=== PATIENT | female | born 1975 | race African-American/Black ===

== ENCOUNTER 2017-02-28 06:35 | Inpatient (IN) ==
[2017-02-26 11:24] LABS: MANUAL DIFF NEEDED? NO; URINE SOURCE VOIDED
[2017-02-26 11:35] LABS: BASO% 0.5 % (0.0-0.8); HEMATOCRIT 36.6 % (37.0-47.0); HEMOGLOBIN 11.2 g/dL (12.0-16.0); IMM GRAN# 0.02 X1000 (0.0-0.04); IMM GRAN% 0.2 % (0.0-0.5); LYMPH# 3.33 X1000 (1.2-3.4); LYMPH% 33.3 % (20.5-51.1); MCH 22.9 PG (27-31); MCHC 30.6 g/dL (33-37); MCV 74.7 FL (81-99); MONO# 0.45 X1000 (0.11-0.59); MONO% 4.5 % (1.7-9.3); MPV 12.7 FL (7.4-10.4); NEUT% 59.5 % (42.2-75.2); PLT 297 X1000 (130-400)
[2017-02-26 11:37] LABS: BILIRUBIN URINE NEGATIVE (NEGATIVE); BLOOD URINE 1+ (NEGATIVE); CLARITY CLEAR (CLEAR); COLOR YELLOW; LEUKOCYTES URINE 1+ (NEGATIVE); NITRITE URINE NEGATIVE (NEGATIVE); PROTEIN URINE 1+(30 mg/dL) mg/dL (NEGATIVE); URINE MICROSCOPIC NEEDED? YES; UROBILINOGEN URINE NORMAL
[2017-02-26 11:45] LABS: URINE EPITHELIAL CELLS <10 /HPF (<10); URINE RBC <10 /HPF (<10); URINE WBC <10 /HPF (<10)
--- NOTE | 2017-02-27 13:42 | HISTORY AND PHYSICAL ---
ADMITTING PHYSICIAN: Dr. Rich. ADMITTING DIAGNOSIS: Dysfunctional uterine bleeding with dysmenorrhea and menorrhagia. SUMMARY: Alexandrea Urban is a 41-year-old nulliparous patient who is having heavy painful periods. She has to wear a pad and tampon. Her periods may last 8-10 days. Her last period went on for almost 3 weeks. We did an ultrasound which shows normal ovaries and a small fibroid. After discussing options with the patient, she is being admitted for abdominal hysterectomy. PAST MEDICAL HISTORY: Patient has never been . This will be her 1st operation. She has a history of heart murmurs, diabetes and hypertension. She has had breast reduction. CURRENT MEDICATIONS: Include Xigduo, Coreg, Norvasc, [place], Flexeril and ramipril. PHYSICAL EXAMINATION: VITAL SIGNS: Weight is 228, blood pressure 154/96. CARDIOVASCULAR: Regular rate and rhythm without murmurs, rubs, or gallops. PULMONARY: Clear. BREASTS: No masses. ABDOMEN: Tender without rebound, rigidity, or guarding. Bowel sounds are present and normal. PELVIC: Examination shows normal external genitalia. The cervix is grossly free of lesions. Recent Pap smear was read as normal. The uterus is difficult to evaluate, does not appear enlarged. There is no adnexal masses. IMPRESSION: Dysfunctional uterine bleeding with dysmenorrhea and menorrhagia. PLAN: After discussing options with the patient, will proceed with abdominal hysterectomy. Risks of surgery including pain, bleeding, infection, bowel or bladder injury, and anesthesia complications been discussed. Reasonable expectations and recovery time have also been discussed. Alternatives to the surgery were discussed. cc: Nitesh Rich MD
[2017-02-28] MEDS ORDERED: LR 1,000 ML IV SCH ×3 (06:40→10:59)
[2017-02-28] MEDS ORDERED: KEFZOL 1 GM/D5W 1 GM/50 ML IVPB IV ONE (06:40)
[2017-02-28] MEDS ORDERED: CLINDAMYCIN 600 MG/NS 600 MG/50 ML IVPB IV ONE (06:51)
[2017-02-28] MEDS ORDERED: HUMULIN R (PARKWAY) SUBQ ONE (07:21)
[2017-02-28 08:00] LABS: HEMOGLOBIN A1C 9.9 % (4.8-6.0)
[2017-02-28] MEDS ORDERED: QUELICIN ONE ×2 (08:20→08:24)
[2017-02-28] MEDS ORDERED: DECADRON ONE (08:24)
[2017-02-28] MEDS ORDERED: TORADOL ONE (08:24)
[2017-02-28] MEDS ORDERED: DIPRIVAN 1% ONE (08:24)
[2017-02-28] MEDS ORDERED: ZOFRAN ONE (08:24)
[2017-02-28] MEDS ORDERED: ROBINUL ONE (08:24)
[2017-02-28] MEDS ORDERED: VERSED ONE (08:25)
[2017-02-28] MEDS ORDERED: FENTANYL ONE (08:25)
[2017-02-28] MEDS ORDERED: PEPCID IV ONE (08:45)
[2017-02-28] MEDS ORDERED: SODIUM CHLORIDE 0.9% 10 ML ONE (08:56)
--- NOTE | 2017-02-28 08:57 | EKG Report ---
Test Performed on : 02/28/2017 08:46:49 AM Test Reason : pre-op-now please Blood Pressure : / mmHG Vent. Rate : 084 BPM Atrial Rate : 084 BPM P-R Int : 134 ms QRS Dur : 086 ms QT Int : 394 ms P-R-T Axes : 065 056 -45 degrees QTc Int : 465 ms Normal sinus rhythm. Right atrial enlargement T wave abnormality, consider inferior ischemia Prolonged QT Abnormal ECG When compared with ECG of 22-FEB-2017 03:48, premature ventricular complexes. are no longer present T wave inversion now evident in Lateral leads Confirmed by Marcello Wilburn MD ([id number]) on 03/02/2017 8:18:22 AM
[2017-02-28] MEDS ORDERED: CLINDAMYCIN 900 MG/NS 900 MG/50 ML IVPB ONE (09:36)
[2017-02-28] MEDS ORDERED: NORCO-10 PO PRN ×2 (10:59→11:34)
[2017-02-28] MEDS ORDERED: LEVSIN-SL SL PRN ×2 (10:59→11:34)
[2017-02-28] MEDS ORDERED: PHENERGAN IM PRN (10:59)
[2017-02-28] MEDS ORDERED: ZOFRAN ODT PO PRN ×2 (10:59→11:35)
[2017-02-28] MEDS ORDERED: DEMEROL IM PRN ×2 (10:59→11:32)
[2017-02-28] MEDS ORDERED: DULCOLAX PR PRN ×2 (10:59→11:33)
[2017-02-28] MEDS ORDERED: MOTRIN PO PRN (10:59)
[2017-02-28] MEDS ORDERED: ZOFRAN IV PRN ×3 (10:59→12:58)
[2017-02-28] MEDS ORDERED: FLEET ENEMA PR PRN ×2 (10:59→11:35)
[2017-02-28] MEDS ORDERED: AMBIEN PO PRN ×2 (10:59→11:32)
[2017-02-28] MEDS ORDERED: NORCO-5 PO PRN ×2 (10:59→11:34)
[2017-02-28 11:00] LABS: URINE SOURCE CATH
[2017-02-28] MEDS ORDERED: HUMULIN R (PARKWAY) SUBQ SCH (11:00)
[2017-02-28 11:06] LABS: BILIRUBIN URINE NEGATIVE (NEGATIVE); BLOOD URINE NEGATIVE (NEGATIVE); CLARITY CLEAR (CLEAR); COLOR YELLOW; LEUKOCYTES URINE TRACE (NEGATIVE); NITRITE URINE NEGATIVE (NEGATIVE); PROTEIN URINE 1+(30 mg/dL) mg/dL (NEGATIVE); URINE MICROSCOPIC NEEDED? YES; UROBILINOGEN URINE 1+(1 mg/dL)
[2017-02-28] MEDS ORDERED: HUMULIN R (PARKWAY) SUBQ PRN ×2 (11:06→11:35)
[2017-02-28 11:20] LABS: URINE EPITHELIAL CELLS <10 /HPF (<10); URINE WBC <10 /HPF (<10)
--- NOTE | 2017-02-28 11:38 | OPERATIVE NOTE ---
PROCEDURE DATE: 02/28/2017 SURGEON: Dr. Nitesh Rich. CHORAL DIRECTOR: Dr. iNtesh Herrera. ANESTHESIA: General endotracheal. OPERATION PERFORMED: Transabdominal hysterectomy. PREOPERATIVE DIAGNOSIS: Dysfunctional uterine bleeding with dysmenorrhea and menorrhagia. POSTOPERATIVE DIAGNOSES: 1. Dysfunctional uterine bleeding with dysmenorrhea and menorrhagia. 2. Uterine leiomyomata. FINDINGS: Small uterine leiomyomata. DESCRIPTION OF PROCEDURE: The patient was taken back to the operating room and after general endotracheal anesthesia, placed in supine position. The vagina and abdomen prepped and draped in usual fashion. A catheter was placed in the urinary bladder. A Pfannenstiel incision was made. This incision was taken down to the fascia, and the fascia was excised transversely. The underlying rectus muscle was bluntly and sharply dissected free. The rectus muscle was in the midline. The peritoneum was entered. The O'Nikhil-O'Chan self-retaining retractors placed and bowel was packed out of the operative field. The fundus of the uterus was grasped with a Shahab clamp. The uterus was poorly mobile and could not be elevated out of the pelvis at anytime during the procedure. Using the LigaSure device, the round ligaments bilaterally were grasped, cauterized, and excised. Continuing with the LigaSure. The remainder of the broad ligament was grasped cauterized and excised with moderate difficulty due to the inability to elevate the uterus out of the pelvis. The bladder flap was created. The bladder was bluntly and sharply dissected off the lower uterine segment and cervix. Even with extreme difficulty, we were able to clamp, cauterize and excise the uterine vessels. At this time, we had no exposure in the lower pelvis. We, therefore, amputated the fundus of the uterus and grasped the cervical stump with the Shahab. We then used straight Rodriguez clamps to clamp, excise, and ligate the cardinal and uterosacral ligaments. We could not get enough mobility to lift the cervix into the operative field. We, therefore, did a supracervical hysterectomy by removing the uterus above the cervix. Several stitches were used for hemostasis. The pelvic cavity was irrigated with copious amounts of sterile water. Hemostasis again was noted. All packs and instruments were removed. Gelfoam was placed across the cervical stump. Initial sponge, instrument, and needle count reported as correct. The peritoneum was closed using a running chromic suture. Second sponge, instrument, and needle count reported as correct. The fascia closed using running Vicryl sutures x2. The adipose tissue was reapproximated using a subcuticular stitch and skin edges reapproximated using 4-0 Monocryl and a Kole needle. Blood loss approximately 50 mL. There were no complications. The patient was extubated and went to the recovery room in stable condition. cc: Nitesh Rich MD
[2017-02-28] MEDS ORDERED: DEMEROL ONE (11:48)
[2017-02-28] MEDS ORDERED: NARCAN IV PRN (12:58)
[2017-02-28] MEDS ORDERED: MORPHINE PCA IV PRN (12:58)
[2017-02-28] MEDS ORDERED: SODIUM CHLORIDE 0.9% INJ PRN (12:58)
[2017-02-28] MEDS ORDERED: PHENERGAN IV PRN (12:58)
[2017-02-28] MEDS ORDERED: HYDROXYZINE PO PRN (12:58)
[2017-02-28] MEDS ORDERED: BENADRYL IV PRN (12:58)
[2017-02-28] MEDS ORDERED: MYLICON PO SCH (13:00)
[2017-02-28] MEDS: MYLICON PO SCH ×3 (13:14→20:16)
[2017-02-28] MEDS: LR 1,000 ML IV SCH ×2 (14:54→20:30)
[2017-02-28 15:15] LABS: HEMATOCRIT 36.5 % (37.0-47.0); HEMOGLOBIN 10.9 g/dL (12.0-16.0)
[2017-02-28] MEDS: HUMULIN R (PARKWAY) SUBQ SCH ×2 (16:21→20:22)
[2017-02-28] MEDS ORDERED: TORADOL IV SCH (17:01)
[2017-02-28] MEDS: TORADOL IV SCH ×2 (17:19→23:08)
[2017-02-28] MEDS: PERIDEX MT SCH (20:16)
[2017-02-28] MEDS: COLACE PO SCH (20:16)
[2017-02-28] MEDS: COREG PO SCH (20:22)
[2017-02-28] MEDS ORDERED: PERIDEX MT SCH (21:00)
[2017-02-28] MEDS ORDERED: COLACE PO SCH (21:00)
[2017-03-01] MEDS: LR 1,000 ML IV SCH ×2 (03:57→10:43)
[2017-03-01] MEDS: TORADOL IV SCH ×3 (03:57→11:31)
[2017-03-01 05:24] LABS: HEMATOCRIT 32.9 % (37.0-47.0); MCH 23.3 PG (27-31); MCHC 30.4 g/dL (33-37); MCV 76.5 FL (81-99); MPV 13.1 FL (7.4-10.4); RBC 4.3 XMIL (4.2-5.4)
[2017-03-01] MEDS: HUMULIN R (PARKWAY) SUBQ SCH ×4 (06:19→20:50)
[2017-03-01] MEDS: GLUCOPHAGE PO SCH (08:48)
[2017-03-01] MEDS: NORVASC PO SCH (08:49)
[2017-03-01] MEDS: MYLICON PO SCH ×4 (08:49→20:50)
[2017-03-01] MEDS: COREG PO SCH ×2 (08:49→20:50)
[2017-03-01] MEDS: COLACE PO SCH ×2 (08:49→20:51)
[2017-03-01] MEDS: ALTACE PO SCH (09:00)
[2017-03-01] MEDS: PERIDEX MT SCH ×2 (11:39→20:51)
[2017-03-01] MEDS ORDERED: D/C PCA XX ONE (14:00)
[2017-03-01] MEDS ORDERED: TORADOL PO SCH (17:01)
[2017-03-01] MEDS: TORADOL PO SCH ×2 (18:18→23:36)
[2017-03-02] MEDS: TORADOL PO SCH ×2 (05:21→11:06)
[2017-03-02] MEDS: HUMULIN R (PARKWAY) SUBQ SCH (06:24)
--- NOTE | 2017-03-02 07:19 | DISCHARGE SUMMARY ---
ADMISSION DATE: 02/28/2017 DISCHARGE DATE: 03/02/2017 ADMITTING DIAGNOSIS: Dysfunctional uterine bleeding with dysmenorrhea and menorrhagia. PRINCIPAL DIAGNOSIS: Dysfunctional uterine bleeding with dysmenorrhea and menorrhagia. PROCEDURE: Abdominal hysterectomy. SUMMARY: Doroteo Urban is a 41-year-old, nulliparous patient with heavy, painful periods. Medical management failed to relieve her condition. An ultrasound was performed which showed normal ovaries and a small fibroid. After discussing options with the patient, she was admitted to the hospital and underwent an abdominal hysterectomy. The surgery somewhat difficult due to the patient's body habitus and lack of mobility in the lower cervix of the uterus. However, there were no intraoperative complications. Postoperatively, the patient has done well. She did have some elevated blood sugars and was on insulin sliding scale. Her last blood sugar was 176. She had an admission hemoglobin and hematocrit of 11.2/36.6, and discharge hemoglobin and hematocrit is 10/32.9. This morning she is afebrile. Cardiac and pulmonary examination is normal. Incision was clean and dry. She is having scant vaginal bleeding. Ms. Urban is being discharged today and we will see her back in the office in a week. She will resume her routine medications including metformin. She is watch her blood sugars at home and call me if it over 250. She will continue her on her antihypertensives and I have written prescriptions for [place] 10 and Toradol for postoperative pain. Routine discharge instructions, activity limitations, and precautions were discussed. cc: Nitesh Rich MD
[2017-03-02 07:49] VITALS: BP 142/80
[2017-03-02] MEDS: PERIDEX MT SCH (09:11)
[2017-03-02] MEDS: COREG PO SCH (09:12)
[2017-03-02] MEDS: MYLICON PO SCH (09:12)
[2017-03-02] MEDS: NORVASC PO SCH (09:12)
[2017-03-02] MEDS: COLACE PO SCH (09:12)
[2017-03-02] MEDS: GLUCOPHAGE PO SCH (09:12)
[2017-03-02] MEDS: ALTACE PO SCH (09:13)
== END 2017-03-02 11:30 | disposition home or self-care (01) ==
LOC: P.WC 06:35
PROVIDERS: ADMIT Obstetrics & Gynecology; ATTEND Obstetrics & Gynecology